=== PATIENT | male | born 1960 | race Caucasian/White ===

== ENCOUNTER 2021-12-03 21:56 | Emergency (ER) | payer OTHER | END 2021-12-04 03:23 | disposition home or self-care (01) | LOC: ER1 21:56 | DX: I10 Essential (primary) hypertension (principal); I48.91 Unspecified atrial fibrillation; F17.210 Nicotine dependence, cigarettes, uncomplicated | CPT/HCPCS: 99283 ==

== ENCOUNTER 2021-12-10 06:49 | Inpatient (IN) | payer OTHER ==
[~2021-12-10] VITALS: Ht 183 cm; Wt 103.9 kg
[2021-12-10 07:24] LABS: HEMOGLOBIN 14.9 gm/dl (14.0-17.5); RED BLOOD COUNT 4.76 M/UL (4.20-5.50); WHITE BLOOD COUNT 9.5 K/UL (4.5-11.0)
[2021-12-10 07:41] LABS: BUN/CREATININE RATIO 18 (0-10)
[2021-12-10] MEDS ORDERED: ALLOPURINOL100 MG PO (11:36)
[2021-12-10] MEDS ORDERED: DICYCLOMINE HCL10 MG PO (11:37)
[2021-12-10] MEDS ORDERED: CLONIDINE HCL0.1 MG PO (11:37)
[2021-12-10] MEDS ORDERED: CYCLOBENZAPRINE10 MG PO (11:37)
[2021-12-10] MEDS ORDERED: HYDROXYZINE PAM25 MG PO (11:38)
[2021-12-10] MEDS ORDERED: MUCUS RELIEF600 MG PO (11:38)
[2021-12-10] MEDS ORDERED: NEURONTIN300 MG PO (11:38)
[2021-12-10] MEDS ORDERED: IBU400 MG PO (11:39)
[2021-12-10] MEDS ORDERED: INDOMETHACIN25 MG PO (11:39)
[2021-12-10] MEDS ORDERED: LOSARTAN POTASS25 MG PO (11:40)
[2021-12-10] MEDS ORDERED: METOPROLOL TART50 MG PO (11:40)
[2021-12-10] MEDS ORDERED: TAB-A-VITE TA400 MC1 PO (11:41)
[2021-12-10] MEDS ORDERED: SERTRALINE HCL50 MG PO (11:41)
[2021-12-10] MEDS ORDERED: NALOXONE HCL4 MG (11:41)
[2021-12-10] MEDS ORDERED: ELIQUIS5 MG PO (11:42)
[2021-12-10] MEDS ORDERED: TRAZODONE HCL100 MG PO (11:42)
[2021-12-11 04:42] LABS: HEMOGLOBIN 14.7 gm/dl (14.0-17.5); RED BLOOD COUNT 4.58 M/UL (4.20-5.50); WHITE BLOOD COUNT 8.7 K/UL (4.5-11.0)
[2021-12-11 05:06] LABS: BUN/CREATININE RATIO 20 (0-10)
[2021-12-12 04:35] LABS: BUN/CREATININE RATIO 22 (0-10)
[2021-12-12] MEDS ORDERED: VITAMIN B-1100 M1 PO (12:20)
[2021-12-12] MEDS ORDERED: BUMETANIDE1 MG PO (12:20)
[2021-12-12] MEDS ORDERED: CEFDINIR300 MG PO (12:20)
[2021-12-12] MEDS ORDERED: NICOTINE PATCH1 EAC5 TD (12:20)
== END 2021-12-12 13:29 | DRG 193 ==
LOC: ER1 06:49 → CDU 10:58 → MED SURG 4 10:58
PROVIDERS: Emergency Medicine; Physician Assistant; ADMIT Internal Medicine
PROC: 3E03329 Introduction of Other Anti-infective into Peripheral Vein, Percutaneous Approach (ICD-10-PCS; principal; 2021-12-10)
PROC: B24BZZZ Ultrasonography of Heart with Aorta (ICD-10-PCS; 2021-12-11)
DX: J18.9 Pneumonia, unspecified organism (principal); J96.01 Acute respiratory failure with hypoxia; I50.33 Acute on chronic diastolic (congestive) heart failure; Z20.822 Contact with and (suspected) exposure to COVID-19; E66.9 Obesity, unspecified; N28.1 Cyst of kidney, acquired; I11.0 Hypertensive heart disease with heart failure; M10.9 Gout, unspecified; I16.0 Hypertensive urgency; F10.10 Alcohol abuse, uncomplicated; F17.210 Nicotine dependence, cigarettes, uncomplicated; I27.20 Pulmonary hypertension, unspecified; N28.9 Disorder of kidney and ureter, unspecified; I48.91 Unspecified atrial fibrillation; Z79.01 Long term (current) use of anticoagulants; Z82.49 Family history of ischemic heart disease and other diseases of the circulatory system; Z68.30 Body mass index [BMI] 30.0-30.9, adult
CPT/HCPCS: ECHO; 36415; 71045; 80053; 82550; 82553; 83605; 83735; 83880; 84100; 84484; 85025; 85610; 85730; 87040; 93005; 93306; 96365; 96366; 96367; 96375; 99285; J0456; J0696; J1940; J7030; Q9967; U0002